=== PATIENT | male | born 1970 | race Caucasian/White ===

== ENCOUNTER 2017-10-25 01:24 | Emergency (ER) | payer OTHER ==
[~2017-10-25] VITALS: Ht 185.4 cm; Wt 81.2 kg
--- NOTE | ~2017-10-25 | EKG ---
[place] [address] [employer] [facility] [place] [address] ELECTROCARDIOGRAM REPORT Name: MARIA ESTHER LARKIN 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 : 1970 Requested By: Roxie Early Order Number: [id number] MD: Christiano Stone Measurements Intervals [place] Rate: 71 P: 60 [place]: 155 QRS: 52 QRSD: 106 T: -35 QT: 388 QTc: 422 Interpretive Statements Sinus rhythm Inferior infarct, age indeterminate Compared to ECG 01/12/2015 09:06:12 No significant change was found Electronically Signed On 10-25-2017 8:51:37 CDT by Christiano Stone [email or web address] <ELECTRONICALLY SIGNED> By: Christiano Stone MD, [facility] 10/25/17 0851 0128 7 Christiano Stone MD, FACC /EPI
[~2017-10-25 01:24] MED LIST: ASPIRIN325 PO; CARVEDILOL12.5 MG PO; LISINOPRIL20 MG PO; NITROGLYCERIN0.4 MG SUBLING; PERCOCET 5-3251 EACH PO; PLAVIX 75 MG TA75 M1 PO; SIMVASTATIN40 MG PO
[2017-10-25 02:01] VITALS: BP 132/88
[2017-10-25 02:10] LABS: ABSOLUTE NEUTROPHILS 1.9 thou/uL (1.4-8.2); BASOPHILS 0.6 % (0.0-2.0); EOSINOPHILS 3.1 % (0.0-3.0); HEMATOCRIT 42.2 % (42.0-52.0); HEMOGLOBIN 14.1 gm/dL (14.0-18.0); LYMPHOCYTES 38.5 % (24.0-44.0); MCH 27.8 pg (26.0-34.0); MCHC 33.4 g/dL (28.0-37.0); MCV 83.2 fL (80.0-100.0); MONOCYTES 11.4 % (1.0-8.0); PLATELET COUNT 162 thou/uL (150-400); POLYS 46.4 % (36.0-66.0); RBC 5.07 mil/uL (4.50-6.00); RDW 12.4 % (10.5-14.5); WBC 4.1 thou/uL (4.0-11.0)
[2017-10-25 02:12] LABS: ANION GAP 8 mmol/L (7-16); BUN 15 mg/dL (7-18); CALCIUM 9.2 mg/dL (8.5-10.1); CHLORIDE 104 mmol/L (98-107); CO2 27 mmol/L (21-32); CREATININE 1.4 mg/dL (0.7-1.3); GLUCOSE 98 mg/dL (74-106); POTASSIUM 3.7 mmol/L (3.5-5.1); SODIUM 139 mmol/L (136-145)
[2017-10-25 02:14] LABS: PROTIME 10.6 Seconds (9.3-11.4)
[2017-10-25 02:21] LABS: TROPONIN-I < 0.04 ng/mL (<0.06)
[2017-10-25] MEDS ORDERED: ATORVASTATIN CA40 MG PO ×2 (02:51)
[2017-10-25] MEDS ORDERED: EFFIENT10 MG PO (02:51)
[2017-10-25] MEDS ORDERED: IMDUR 30 MG TAB30 M1 PO (02:52)
[2017-10-25 03:53] VITALS: BP 139/92
[2017-10-27 05:10] LABS: GLYCOHEMOGLOBIN (HGB A1C) 5.3 % (4.8-5.6)
== END 2017-10-25 03:55 | disposition left against medical advice (07) ==
LOC: ER 01:24 → EROBS 02:50 → ER 03:55
PROVIDERS: Emergency Medicine; Nurse Practitioner Acute Care
DX: I24.9 Acute ischemic heart disease, unspecified (principal); Z53.21 Procedure and treatment not carried out due to patient leaving prior to being seen by health care provider; I25.10 Atherosclerotic heart disease of native coronary artery without angina pectoris; E78.00 Pure hypercholesterolemia, unspecified; I10 Essential (primary) hypertension; F17.210 Nicotine dependence, cigarettes, uncomplicated

== ENCOUNTER 2018-03-22 21:23 | Inpatient (IN) | payer OTHER ==
[~2018-03-22] VITALS: Ht 185.4 cm; Wt 73.9 kg
--- NOTE | ~2018-03-22 | EKG ---
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
--- NOTE | ~2018-03-22 | EKG ---
[address] [address] ELECTROCARDIOGRAM REPORT Name: MARIA ESTHER LARKIN Room #: 206-P [facility] IN M.R.#: [id number] Admission: 03/22/18 Attend Phys: Kip Fleming MD Discharge: 03/24/18 Date of : 66 Report #: [id number] THIS REPORT FOR: //name// [facility] ED Test Date: 2018-03-22 Test Time: 21:24:26 Pat Name: MARIA ESTHER LARKIN Department: Room: 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 : 1970 Requested By: Carlos Eduardo Clark Order Number: [id number] MD: Van Bunch Measurements Intervals [place] Rate: 90 P: 80 [place]: 142 QRS: 59 QRSD: 104 T: -10 QT: 342 QTc: 419 Interpretive Statements Sinus rhythm Probable left atrial enlargement Left ventricular hypertrophy Inferior infarct, age indeterminate Compared to ECG 10/25/2017 01:28:07 Left ventricular hypertrophy now present Myocardial infarct finding still present Electronically Signed On 03-25-2018 14:59:40 CDT by Van Bunch [email or web address] <ELECTRONICALLY SIGNED> By: Van Bunch MD 03/25/18 1459 23 23 Van Bunch MD /EPI
--- NOTE | ~2018-03-22 | CATHLAB ---
[facility] [place] [address] INVASIVE PROCEDURE REPORT Name: MARIA ESTHER LARKIN Room #: 206-P DIS IN [facility].#: [id number] Admission: 03/22/18 Attend Phys: Kip Fleming MD Discharge: 03/24/18 Date of : 66 Date of Service: 03/24/18 1703 Report #: [id number] THIS REPORT FOR: //name// APPROVED REPORT Study performed: 03/23/2018 12:07:15 Patient Details Patient Status: In-Patient Room #: The patient is a 47 year-old male Event Personnel Truman Bishop Yard Demurrage Clerk, Jeanine Glez RN RN, Kyung Salas RTR, Rubin Juarez David Monitor Procedures Performed Left Heart Cath w/or w/o Coronaries [id number] [facility] Aortogram Abdominal Peripheral Angio [address] w/wo Plasty Single RCA 894265 Indication Chest pain Procedure Narrative The Right Groin^ was infiltrated with 1% Lidocaine subcutaneous anesthesia. A PINNACLE 6FR Sheath #[id number] sheath was inserted into the RFA^. Coronary angiography was performed using coronary diagnostic catheters. The right coronary system was accessed and visualized with a JR4 catheter. The left coronary system was accessed and visualized with a JL4 catheter. The left ventricle was accessed and visualized with a PIGTAIL catheter. Left ventriculogram was performed in 30 degree projection. An aortogram of the abdominal aorta was performed. Closure device was deployed with a 6 Fr MYNXGRIP 6/7F #[id number]. There was no hematoma. Intraoperative Conscious Sedation Sedation start time: 12.55 Case end Time: 14.20 Fentanyl 100 mcg Versed 2 mg Fluoro Time: 23.49 minutes Dose: DAP 09430 cGycm2 2223 mGy Contrast Type and Amount: Omnipaque 285 ml Hemodynamics [facility] [place] [address] INVASIVE PROCEDURE REPORT Name: TRAEMARIA ESTHER L Room #: 206-P [facility].#: [id number] Admission: 03/22/18 Attend Phys: Kip Fleming MD Discharge: 03/24/18 Date of : 66 Date of Service: 03/24/18 1703 Report #: [id number] The aortic pressure is 131/88 mmHg with a mean of 105 mmHg. The left ventricular pressure is 145/17 mmHg with a mean of mmHg. The left ventricular end diastolic pressure is 24 mmHg. PCI Technique Lesion Percutaneous coronary intervention was performed on the right posterior descending artery. A LAUNCHER 6FR JR 4 #[id number] Guide Catheter was used to engage the ostium. A Luge Wire .014 x 182CM #[id number] Interventional Guidewire was used to cross the lesion. BALLOON DILATION A Balloon catheter Sprinter OTW 2.25 x 12 #[id number] was inserted and inflated up to 10.00atm for 20seconds. Additional Inflation: 14.00atm for 28seconds. Additional Inflation: 12.00atm for 34seconds. STENT DEPLOYMENT A drug-eluting stent RESOLUTE LYNETTE OTW 2.5 X 12 #[id number] was inserted and inflated up to 16.00atm for 19seconds. Additional Inflation: 18.00atm for 21seconds. Additional Inflation: 18.00atm for 28seconds. PCI Technique Lesion 2 Percutaneous Coronary Intervention was performed on the mistal right coronary artery. A LAUNCHER 6FR JR 4 #[id number] Guide Catheter was used to engage the ostium. A Luge Wire .014 x 182CM #[id number] Interventional Guidewire was used to cross the lesion. Balloon Dilation A Balloon catheter Sprinter OTW 2.5 x 15 #[id number] was inserted and inflated up to 8.00atm for 15seconds. Additional Inflation: 12.00atm for 23seconds. Additional Inflation: 18.00atm for 19seconds. Stent Deployment A drug-eluting stent RESOLUTE LYNETTE OTW 2.75 X 15 #[id number] was inserted and inflated up to 16.00atm for 31seconds. Additional Inflation: 16.00atm for 10seconds. Additional Inflation: 20.00atm for 20seconds. Conclusion #1 successful PTCA stent of a distal right coronary artery subacute infarct vessel 100% occluded with thrombus to 0% with placement of a 2.75 Lynette stent to 3.0 mm in size postdilated #2 successful PTCA stent of a subtotal ostial PDA placement of a 2.5 x 12 Lynette medicated stent to 2.7 mm. This is at a trifurcation lesion. The posterior lateral branch is still briskly and [facility] [address] [place] [address] INVASIVE PROCEDURE REPORT Name: MARIA ESTHER LARKIN Room #: 206-P [facility] IN M.R.#: [id number] Admission: 03/22/18 Attend Phys: Kip Fleming MD Discharge: 03/24/18 Date of : 66 Date of Service: 03/24/18 1703 Report #: [id number] competitively via the left system. #3 the proximal portion of this right coronary has full metal jacket from previous stent segment of the distal third is a 50% in-stent and that is proximal to the prior occluded segment. #4 left main with mild disease giving rise to LAD and circumflex #5 the LAD has extensive proximal prior stent placement with mild in-stent restenosis a mid vessel lesion of 50% distal to the stents and mild disease distally high-grade disease at the bifurcation at the apex of this LAD would treat this medically #6 a ramus intermedius branch has an ostial lesion of 40-50% otherwise well-preserved #7 nondominant circumflex has an eccentric lesion of 8090% tandem in the mid vessel. This will be a segment for intervention at a later date. This vessel has not previously been stented. #8 normal left ventricular size with at least mild global hypokinesis with severe hypokinesis in the inferior wall suspect this may be stunned from the recent RCA occlusion. EF 40% range #9 abdominal aorta is intact without evidence of aneurysm. Bilateral renals and iliac system widely patent Recommendations and plan: Continue aggressive risk factor modification. To the CCU in stable but guarded condition. Dual antiplatelet therapy will continue indefinitely. 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 Will need intervention to circumflex at later date. <ELECTRONICALLY SIGNED> By: Truman Bishop MD, [facility] 03/24/18 1703 02 02 Truman Bishop MD, [facility] /INF
--- NOTE | ~2018-03-22 | 2DMMODE ---
[facility] [place] [address] 2 D/M-MODE ECHOCARDIOGRAM Name: MARIA ESTHER LARKIN Dany Room #: 206-P [facility] IN ..#: [id number] Admission: 03/22/18 Attend Phys: Kip Fleming MD Discharge: Date of : 66 Date of Service: 03/24/18 0958 Report #: [id number] THIS REPORT FOR: //name// APPROVED REPORT Study performed: 03/23/2018 09:21:26 EXAM: Comprehensive 2D, Doppler, and color-flow Echocardiogram Patient Location: Bedside Room #: 349 Status: routine BSA: 2.00 HR: 73 bpm BP: 125/78 mmHg Rhythm: NSR Other Information Study Quality: Good Indications CAD Chest Pain Hypertension/HDD 2D Dimensions RVDd: 38.52 mm IVSd: 13.28 (7-11mm) LVOT Diam: 20.82 (18-24mm) LVDd: 48.24 mm PWd: 13.15 (7-11mm) Ascending Ao: 30.35 (22-36mm) LVDs: 38.87 (25-40mm) Aortic Root: 29.88 mm IVC: 15.00 mm Volumes Left Atrial Volume (Systole) Single Plane 4CH: 43.56 mL Single Plane 2CH: 48.11 mL LA ESV Index: 26.00 mL/m2 Aortic Valve AoV Peak Lamberto.: 1.15 m/s AO Peak Gr.: 5.32 mmHg LVOT Max P.18 mmHg LVOT Max V: 1.02 m/s JAIME Vmax: 3.02 cm2 Mitral Valve E/A Ratio: 1.3 [facility] [address] [place] [address] 2 D/M-MODE ECHOCARDIOGRAM Name: MARIA ESTHER LARKIN Room #: [facility]#: [id number] Admission: 03/22/18 Attend Phys: Kip Fleming MD Discharge: Date of : 66 Date of Service: 03/24/18 0958 Report #: [id number] MV Decel. Time: 200.03 ms MV E Max Lamberto.: 0.78 m/s MV A Lamberto.: 0.58 m/s MV PHT: 58.01 ms IVRT: 101.50 ms Pulmonary Valve PV Peak Lamberto.: 0.86 m/s PV Peak Gr.: 2.99 mmHg Pulmonary Vein P Vein S: 0.59 m/s P Vein A: 0.23 m/s P Vein D: 0.40 m/s P Vein A Dur.: 110.7 msec P Vein S/D Ratio: 1.48 Tricuspid Valve TR Peak Lamberto.: 2.03 m/s TR Peak Gr.: 16.50 mmHg PA Pressure: 22.00 mmHg Left Ventricle The left ventricle is normal size. There is hypokinesis in the inferior wall. There is hypokinesis in the septal wall. There is hypokinesis in the posterior wall. Mild concentric left ventricular hypertrophy. Left ventricular systolic function is mildly decreased. LVEF is 40%. The left ventricular diastolic function is normal. Right Ventricle The right ventricle is normal size. The right ventricular systolic function is normal. Atria The left atrium size is normal. The right atrium size is normal. Aortic Valve The aortic valve is normal in structure. No aortic regurgitation is present. There is no aortic valvular stenosis. Mitral Valve The mitral valve is normal in structure. Trace mitral regurgitation. No evidence of mitral valve stenosis. Tricuspid Valve The tricuspid valve is normal in structure. There is trace tricuspid regurgitation. Estimated PAP 22 mmHg. There is no pulmonary [place] [id number] 2 D/M-MODE ECHOCARDIOGRAM Name: MARIA ESTHER LARKIN Room #: 206-P [facility] IN [facility]#: [id number] Admission: 03/22/18 Attend Phys: Kip Fleming MD Discharge: Date of : 66 Date of Service: 03/24/18 0958 Report #: [id number] hypertension. Pulmonic Valve The pulmonary valve is normal in structure. Trace pulmonic regurgitation. Great Vessels The aortic root is normal in size. IVC is normal in size and collapses >50% with inspiration. Pericardium There is no pericardial effusion. <Conclusion> The left ventricle is normal size. LVEF is 40%. There is hypokinesis in the inferior wall. There is hypokinesis in the septal wall. There is hypokinesis in the posterior wall. The aortic valve is normal in structure. The mitral valve is normal in structure. Trace mitral regurgitation. The tricuspid valve is normal in structure. There is trace tricuspid regurgitation. Estimated PAP 22 mmHg. There is no pulmonary hypertension. The pulmonary valve is normal in structure. Trace pulmonic regurgitation. There is no pericardial effusion. <ELECTRONICALLY SIGNED> By: Anatoyl Jovel MD 03/24/1858 7 7 Anatoly Jovel MD /INF
[~2018-03-22 21:23] MED LIST changes: +ATORVASTATIN CA40 MG PO; +EFFIENT10 MG PO; +IMDUR 30 MG TAB30 M1 PO
[2018-03-22 21:26] VITALS: BP 121/81
[2018-03-22 21:59] LABS: ABSOLUTE NEUTROPHILS 1.6 thou/uL (1.4-8.2); BASOPHILS 0.6 % (0.0-2.0); EOSINOPHILS 4.5 % (0.0-3.0); HEMATOCRIT 38.7 % (42.0-52.0); HEMOGLOBIN 13.3 gm/dL (14.0-18.0); LYMPHOCYTES 43.5 % (24.0-44.0); MCH 28.9 pg (26.0-34.0); MCHC 34.3 g/dL (28.0-37.0); MONOCYTES 10.7 % (1.0-8.0); PLATELET COUNT 145 thou/uL (150-400); POLYS 40.7 % (36.0-66.0); RDW 12.6 % (10.5-14.5); WBC 3.9 thou/uL (4.0-11.0)
[2018-03-22 22:06] LABS: ANION GAP 10 mmol/L (7-16); BUN 16 mg/dL (7-18); CHLORIDE 105 mmol/L (98-107); CO2 25 mmol/L (21-32); CREATININE 1.3 mg/dL (0.7-1.3); GLUCOSE 96 mg/dL (74-106); POTASSIUM 3.8 mmol/L (3.5-5.1); SODIUM 140 mmol/L (136-145)
[2018-03-22 22:16] LABS: TROPONIN-I <0.06 ng/mL (<0.06)
[2018-03-22 23:20] VITALS: BP 127/76
[2018-03-22 23:35] VITALS: BP 124/78
[2018-03-23 03:30] VITALS: BP 134/80
[2018-03-23 04:22] LABS: CHOLESTEROL 202 mg/dL (<200); HDL CHOLESTEROL 40 mg/dL (>40); LDL CHOLESTEROL 146 mg/dL (<100); TC:HDL 5.1 Ratio (Not establshd); TRIGLYCERIDE 82 mg/dL (<150); VLDL 16 mg/dL (<40)
[2018-03-23 04:23] LABS: SERUM ASSESSMENT Clear
[2018-03-23 08:15] VITALS: BP 125/78
[2018-03-23 11:46] VITALS: BP 117/75
[2018-03-23 15:30] VITALS: BP 123/86
[2018-03-23 20:00] VITALS: BP 121/69
[2018-03-24 03:32] LABS: CALCIUM 8.5 mg/dL (8.5-10.1); CREATININE 1.2 mg/dL (0.7-1.3)
[2018-03-24 03:35] LABS: TROPONIN-I 17.08 ng/mL (<0.06)
[2018-03-24 05:15] VITALS: BP 133/81
[2018-03-24 08:09] VITALS: BP 130/88
[2018-03-24] MEDS ORDERED: ZETIA10 MG PO (08:25)
[2018-03-24] MEDS ORDERED: ATORVASTATIN CA40 MG PO (08:25)
[2018-03-24] MEDS ORDERED: ASPIRIN325 PO (08:25)
[2018-03-24] MEDS ORDERED: EFFIENT10 MG PO (08:25)
[2018-03-24 11:51] VITALS: BP 109/63
[2018-03-24 11:58] VITALS: BP 109/63
== END 2018-03-24 14:16 | disposition home or self-care (01) | DRG 246 ==
LOC: ER 21:23 → 3W 22:40 → EROBS 22:40 → 3W 23:28 → 2N 03-23 15:04
PROVIDERS: Internal Medicine Cardiovascular Disease; Nurse Practitioner Acute Care; Physician Assistant
PROC: B2111ZZ Fluoroscopy of Multiple Coronary Arteries using Low Osmolar Contrast (ICD-10-PCS; principal; 2018-03-23)
PROC: 4A023N7 Measurement of Cardiac Sampling and Pressure, Left Heart, Percutaneous Approach (ICD-10-PCS; principal; 2018-03-23)
PROC: B2151ZZ Fluoroscopy of Left Heart using Low Osmolar Contrast (ICD-10-PCS; principal; 2018-03-23)
PROC: 027135Z Dilation of Coronary Artery, Two Arteries with Two Drug-eluting Intraluminal Devices, Percutaneous Approach (ICD-10-PCS; principal; 2018-03-23)
PROC: B4101ZZ Fluoroscopy of Abdominal Aorta using Low Osmolar Contrast (ICD-10-PCS; principal; 2018-03-23)
DX: I21.4 Non-ST elevation (NSTEMI) myocardial infarction (principal); I50.33 Acute on chronic diastolic (congestive) heart failure; I13.0 Hypertensive heart and chronic kidney disease with heart failure and stage 1 through stage 4 chronic kidney disease, or unspecified chronic kidney disease; E78.00 Pure hypercholesterolemia, unspecified; I25.10 Atherosclerotic heart disease of native coronary artery without angina pectoris; F17.290 Nicotine dependence, other tobacco product, uncomplicated; E78.5 Hyperlipidemia, unspecified; Z79.82 Long term (current) use of aspirin; I25.2 Old myocardial infarction; Z95.5 Presence of coronary angioplasty implant and graft; Z88.6 Allergy status to analgesic agent; Z82.49 Family history of ischemic heart disease and other diseases of the circulatory system; Z82.3 Family history of stroke; Z79.899 Other long term (current) drug therapy
CPT/HCPCS: 10081; 10879

== ENCOUNTER 2018-07-20 07:05 | Observation (INO) | payer OTHER ==
[~2018-07-20] VITALS: Ht 185.4 cm; Wt 82.3 kg
[2018-07-20 07:02] VITALS: BP 125/59
[~2018-07-20 07:05] MED LIST changes: +ZETIA10 MG PO
[2018-07-20] MEDS ORDERED: ASPIR 8181 MG PO (07:22)
[2018-07-20] MEDS ORDERED: NITROGLYCERIN0.4 MG SUBLING (07:25)
[2018-07-20 07:37] LABS: HEMATOCRIT 40.9 % (42.0-52.0); HEMOGLOBIN 13.7 gm/dL (14.0-18.0); MCH 28.1 pg (26.0-34.0); MCHC 33.4 g/dL (28.0-37.0); MCV 84.1 fL (80.0-100.0); RBC 4.86 mil/uL (4.50-6.00); RDW 12.6 % (10.5-14.5); WBC 5.2 thou/uL (4.0-11.0)
[2018-07-20 07:43] LABS: CALCIUM 9.1 mg/dL (8.5-10.1); CREATININE 1.4 mg/dL (0.7-1.3); POTASSIUM 4.5 mmol/L (3.5-5.1)
--- NOTE | 2018-07-20 08:31 | EKG ---
[place] [address] 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
[2018-07-20 13:11] VITALS: BP 132/89
--- NOTE | 2018-07-20 15:51 | NUR ---
PT TO THE UNIT POST CATH THIS AM. GROINS SITE AND VSS. MEDS PER SEP - NO CO'S OF NAUSEA NICOLE DIET AND FLUIDS. PT WITH CO'S OF BACK PAIN - GIVEN TYLENOL WITH RELIEF. IV FLUIDS INFUSED. NO CO'S AT THE PRESENTIME - SEEN BY CARDIAC REHAB THIS AFTERNOON. FAMILY AT THE BEDSIDE.
[2018-07-20 21:57] VITALS: BP 145/80
[2018-07-21 00:38] VITALS: BP 140/90
[2018-07-21 03:43] VITALS: BP 138/82
--- NOTE | 2018-07-21 03:46 | NUR ---
ASSUMED PT CARE AT 1900. VSS. PT A&0X4. PT IS POST HEART CATH. R GROIN SITE IS CDI. PT IS STABLE. HE COMPLAINED OF SOME TENDERNESS AT THE SITE WHICH WAS RESOLVED WITH TYLENOL. PT IS UP ADLIB AND STEADY ON HIS FEET. NO COMPLAINTS OR DISTRESS OVERNIGHT, WILL CONTINUE TO MONITOR PER POC.
[2018-07-21 07:00] VITALS: BP 145/77
[2018-07-21] MEDS ORDERED: ASPIRIN325 PO (07:24)
--- NOTE | 2018-07-21 08:18 | EKG ---
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: RAISSA : 1970 Requested By: Radha Smith Order Number: [id number] MD: Christiano Stone Measurements Intervals [place] Rate: 60 P: 54 MI: 155 QRS: 30 QRSD: 109 T: -23 QT: 405 QTc: 405 Interpretive Statements Sinus rhythm Inferior infarct, age indeterminate Baseline wander in lead(s) V2 Compared to ECG 07/20/2018 07:36:37 No significant changes Electronically Signed On 07-21-2018 8:18:39 ZOOKEEPER by Christiano Stone [email or web address] <ELECTRONICALLY SIGNED> By: Christiano Stone MD, [facility] 07/21/1818 0648 0648 Christiano Stone MD, [facility] /EPI
[2018-07-21 08:57] VITALS: BP 138/82
--- NOTE | 2018-07-21 09:40 | NUR ---
RD consult received. S/P angioplasty. Has received education binder and stated he had no questions regarding diet and that he has already started making changes.
[2018-07-21 11:05] VITALS: BP 134/79
--- NOTE | 2018-07-21 13:14 | NUR ---
ASSESSMENT CHARTED - MEDS PER SEP - NO CO'S OF NAUSEA - CO'S OF PAIN IN GROIN SITE GIVEN TYLENOL WITH RELIEF - UP AD GAYLE IN ROOM - NICOLE DIEET AND FLUIDS. PT HOME THIS AFTERNOON. - INSTRUCTION RE HOME MEDS/ CARE AND FOLLOW UP GIVEN TO PATIENT STATED UNDERSTANDING OF INSTRUCTION GIVEN - MONITOR REMOVED AND IV OUT PRIOR TO D/C. NO CO'S AT TIME OF D/C.
--- NOTE | 2018-07-21 13:47 | CATHLAB ---
[facility] [address] INVASIVE PROCEDURE REPORT Name: MARIA ESTHER LARKIN Room #: 200-I DIS IN ..#: [id number] Admission: 07/20/18 Attend Phys: Truman Bishop, Discharge: 07/21/18 Date of : 66 Date of Service: 07/21/18 1346 Report #: [id number] THIS REPORT FOR: //name// APPROVED REPORT Study performed: 07/20/2018 07:17:31 Patient Details Patient Status: Out-Patient Room #: The patient is a 48 year-old male Event Personnel Truman Bishop Scrap Drop Crane Operator, Jeanine Glez RN RN, Kyung Salas RTR, Rubin Juarez David Monitor Procedures Performed Left Heart Cath w/or w/o Coronaries [id number] [facility] Place w/wo Plasty Single CIRC 381178 Indication Chest pain Procedure Narrative The Right Groin^ was infiltrated with 1% Lidocaine subcutaneous anesthesia. A PINNACLE 6FR Sheath #521315 sheath was inserted into the RFA^. Coronary angiography was performed using coronary diagnostic catheters. The right coronary system was accessed and visualized with a JR4 catheter. The left coronary system was accessed and visualized with a JL4 catheter. The left ventricle was accessed and visualized with a PIGTAIL catheter. Closure device was deployed with a 6 Fr MYNXGRIP 6/7F #[id number]. There was no hematoma. Intraoperative Conscious Sedation Sedation start time: 8.55 Case end Time: 9.44 Fentanyl 25 mcg Versed 1.5 mg Fluoro Time: 5.25 minutes Dose: DAP 5378 cGycm2 681 mGy Contrast Type and Amount: Omnipaque 180 ml Hemodynamics The aortic pressure is 129/79 mmHg with a mean of 95 mmHg. The left ventricular pressure is 129/8 mmHg with a mean of mmHg. The left [facility] [address] [place] [address] INVASIVE PROCEDURE REPORT Name: TRAEMARIA ESTHERALBINO WOLF Room #: 200-I [facility] IN .R.#: [id number] Admission: 07/20/18 Attend Phys: Truman Bishop, Discharge: 07/21/18 Date of : 66 Date of Service: 07/21/18 1346 Report #: [id number] ventricular end diastolic pressure is 24 mmHg. PCI Technique Lesion Percutaneous coronary intervention was performed on the mid circumflex artery segment. A LAUNCHER 6FR EBU 3.5 #[id number] Guide Catheter was used to engage the ostium. A Luge Wire .014 x 182CM #[id number] Interventional Guidewire was used to cross the lesion. BALLOON DILATION A Balloon catheter Sprinter OTW 2.5 x 20 #[id number] was inserted and inflated up to 10.00atm for 27seconds. Additional Inflation: 8.00atm for 26seconds. STENT DEPLOYMENT A drug-eluting stent XIENCE KEVIN RX 2.5 X 18 #[id number] was inserted and inflated up to 12.00atm for 30seconds. Additional Inflation: 16.00atm for 23seconds. Conclusion #1 successful PTCA stent of a mid circumflex lesion tandem 90% to 0% with placement of a 2.5 x 18 Kevin drug-eluting stent healing 0% residual and SOCORRO grade 3 flow #2 left main is mildly disease distally of 30% giving rise to LAD and ramus and circumflex #3 LAD with proximal stents is mild in-stent restenosis mid vessel lesion of 50% and then high-grade at the apex will not intervene at the apical segment. #4 ramus intermedius branch is mild to moderately disease 40 and 50% proximal lesions moderate distribution #5 dominant right coronary artery which has extensive full metal jacket now was recently intervened on for an acute inferior all remained patent with only moderate restenosis in the distal third segment the PDA TERESO which were intervened on appear to be widely patent. SOCORRO grade 3 flow #6 normal left ventricular size there is a moderate area of severe hypokinesis of the distal inferior wall ejection fraction in the 45% range. [place] is mildly hypokinetic Recommendations and plan: Continue aggressive risk for factor modification dual antiplatelet therapy. To the CCU to follow post stent protocol <ELECTRONICALLY SIGNED> By: Truman Bishop MD, [facility] 07/21/18 1346 45 Truman Bishop MD, FACC /INF
== END 2018-07-21 13:13 | disposition home or self-care (01) ==
LOC: CATH 07:05 → 2N 10:17 → CATH 13:12 → ENTRNSPT 07-21 13:00 → EDTRNSPTSTS 07-21 13:05 → 2N 07-21 13:13
PROVIDERS: ADMIT Internal Medicine Cardiovascular Disease
DX: I25.10 Atherosclerotic heart disease of native coronary artery without angina pectoris (principal); I10 Essential (primary) hypertension; I21.4 Non-ST elevation (NSTEMI) myocardial infarction; E78.5 Hyperlipidemia, unspecified; I24.9 Acute ischemic heart disease, unspecified; Z72.0 Tobacco use; Z79.82 Long term (current) use of aspirin; Z79.899 Other long term (current) drug therapy

== ENCOUNTER → 2019-11-21 | Outpatient (CLI) | payer OTHER ==
[~2019-11-21] MED LIST changes: +ASPIR 8181 MG PO
== END ==
LOC: SJCVC 15:17
PROVIDERS: ATTEND Internal Medicine Cardiovascular Disease
DX: R94.31 Abnormal electrocardiogram [ECG] [EKG] (principal); I25.10 Atherosclerotic heart disease of native coronary artery without angina pectoris; E78.2 Mixed hyperlipidemia; I10 Essential (primary) hypertension; I25.5 Ischemic cardiomyopathy; F17.210 Nicotine dependence, cigarettes, uncomplicated; Z95.5 Presence of coronary angioplasty implant and graft; Z79.899 Other long term (current) drug therapy

== ENCOUNTER → 2020-09-03 | Outpatient (CLI) | payer OTHER | LOC: SJCVCIMAG 09:07 | PROVIDERS: ATTEND Internal Medicine Cardiovascular Disease | DX: I08.8 Other rheumatic multiple valve diseases (principal); R00.0 Tachycardia, unspecified; I49.3 Ventricular premature depolarization; I11.9 Hypertensive heart disease without heart failure; I25.10 Atherosclerotic heart disease of native coronary artery without angina pectoris; I25.5 Ischemic cardiomyopathy; I25.2 Old myocardial infarction; Z88.8 Allergy status to other drugs, medicaments and biological substances; Z79.899 Other long term (current) drug therapy ==

== ENCOUNTER 2020-12-09 04:21 | Inpatient (IN) | payer OTHER ==
[~2020-12-09] VITALS: Ht 185.4 cm; Wt 85.7 kg
[2020-12-09] VITALS (17 sets, daily range): BP systolic 130–177; BP diastolic 65–103
[2020-12-09 04:50] LABS: ABSOLUTE NEUTROPHILS 5.1 thou/uL (1.4-8.2); BASOPHILS 0.6 % (0.0-2.0); EOSINOPHILS 2.4 % (0.0-3.0); HEMATOCRIT 40.7 % (42.0-52.0); HEMOGLOBIN 13.7 gm/dL (14.0-18.0); LYMPHOCYTES 24.6 % (24.0-44.0); MCHC 33.6 g/dL (28.0-37.0); MCV 83.2 fL (80.0-100.0); MONOCYTES 7.1 % (1.0-8.0); PLATELET COUNT 187 thou/uL (150-400); POLYS 65.3 % (36.0-66.0); RDW 12.5 % (10.5-14.5); WBC 7.8 thou/uL (4.0-11.0)
[2020-12-09 06:04] LABS: ANION GAP 12 mmol/L (7-16); BUN 8 mg/dL (7-18); CALCIUM 8.8 mg/dL (8.5-10.1); CHLORIDE 102 mmol/L (98-107); CO2 25 mmol/L (21-32); CREATININE 1.4 mg/dL (0.7-1.3); GLUCOSE 130 mg/dL (74-106); POTASSIUM 3.8 mmol/L (3.5-5.1); SODIUM 139 mmol/L (136-145)
[2020-12-09 06:09] LABS: ALBUMIN 3.7 g/dL (3.4-5.0); LIPASE 110 U/L (73-393); SGOT 19 U/L (15-37); SGPT 30 U/L (16-63); TOTAL BILIRUBIN 0.2 mg/dL (0.2-1.0); TOTAL PROTEIN 7.9 g/dL (6.4-8.2); TROPONIN-I <0.06 ng/mL (<0.06)
--- NOTE | 2020-12-09 07:18 | EKG ---
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 Admin: : 1970 Requested By: Titus Andres Order Number: [id number] MD: Gigi Alejandra Measurements Intervals [place] Rate: 85 P: 73 WI: 156 QRS: 59 QRSD: 117 T: -15 QT: 374 QTc: 445 Interpretive Statements Sinus rhythm Probable left ventricular hypertrophy Inferior infarct, old J Point elevation, probably due to LVH Compared to ECG 07/21/2018 06:48:44 Left ventricular hypertrophy now present ST (T wave) deviation now present Myocardial infarct finding still present Electronically Signed On 12-09-2020 7:18:10 CDT by iGgi Alejandra [email or web address] <ELECTRONICALLY SIGNED> By: Gigi Alejandra MD, [facility] 12/09/20 0718 043 0431 Gigi Alejandra MD, [facility] /EPI
--- NOTE | 2020-12-09 09:19 | NUR ---
PT ORIENTED TO ROOM AND UNIT, BED LOW AND LOCKED, SIDE RAILS UPX3, CALL LIGHT IN REACH, TELE APPLIED. CRITICAL TROPONIN RESULTS CALLED TO CARDIOLOGY DIE GRINDER. WILL CONTINUE TO ASSESS.
--- NOTE | 2020-12-09 11:20 | NUR ---
PT OFF UNIT TO OPERATIONS SPECIALISTS.
[2020-12-09 13:40] LABS: CHOLESTEROL 227 mg/dL (<200); HDL CHOLESTEROL 34 mg/dL (>40); LDL CHOLESTEROL 154 mg/dL (<100); TC:HDL 6.7 Ratio (Not establshd); TRIGLYCERIDE 195 mg/dL (<150); VLDL 39 mg/dL (<40)
--- NOTE | 2020-12-09 13:58 | NUR ---
PT RETURN TO UNIT FROM TECHNICAL SERVICES ASSISTANT. GITH GROIN CDI WITH NO HEMATOMA. TELE REAPPLIED. WILL CONTINUE TO ASSESS.
--- NOTE | 2020-12-09 13:58 | NUR ---
PT ADIMITTED WITH CHEST PX. PT STATED HE HAS 3 STROKES IN THE PAST. PT LIVES WITH AND KIDS. PT INDEPENDENT WITH ADLS. PT IS UNEMPLOYEED. PT DONT USE ANY DMES. PT USES "WHOLE PERSON" FOR IN HOME CARE SERVICES AN AVERAGE OF 6HRS. PT DOES NOT HAVE PCP, CM GAVE RESOURCE LIST. PT SEE DR GUY FROM [facility].
--- NOTE | 2020-12-09 15:36 | 2DMMODE ---
[facility] [place] [address] 2 D/M-MODE ECHOCARDIOGRAM Name: MARIA ESTHER LARKIN Room #: 211-P ADM IN M.R.#: [id number] Admission: 12/09/20 Attend Phys: Mei Witt MD Discharge: Date of : 66 Report #: [id number] THIS REPORT FOR: cc: NO FAMILY PHYSICIAN or PCP NO FAMILY PHYSICIAN or PCP Anatoly Jovel MD ~ APPROVED REPORT Study performed: 12/09/2020 14:19:40 EXAM: Limited 2D, Doppler, and color-flow Echocardiogram Patient Location: Bedside Room #: 211 Status: routine BSA: 2.08 HR: 71 bpm BP: 157/103 mmHg Rhythm: NSR Other Information Study Quality: Excellent Indications Chest pain. S/P PCI. Hx: NSTEMI, multiple stents, HTN, HLP, tob abuse. 2D Dimensions IVSd: 12.00 (7-11mm) LVDd: 54.00 mm PWd: 12.00 (7-11mm) LVDs: 45.20 (25-40mm) Aortic Root: 34.23 mm Aortic Valve LVOT Max P.15 mmHg LVOT Max V: 0.89 m/s Mitral Valve E/A Ratio: 0.7 MV Decel. Time: 199.92 ms MV E Max Lamberto.: 0.70 m/s MV A Lamberto.: 0.95 m/s MV PHT: 57.98 ms Pulmonary Valve [facility] [address] [place] [address] 2 D/M-MODE ECHOCARDIOGRAM Name: MARIA ESTHER LARKIN Room #: 211-P ADM IN M.R.#: [id number] Admission: 12/09/20 Attend Phys: Mei Witt MD Discharge: Date of : 66 Report #: [id number] PV Peak Lamberto.: 0.81 m/s PV Peak Gr.: 2.62 mmHg Tricuspid Valve TR Peak Lamberto.: 2.36 m/s RAP Estimate: 5.00 mmHg TR Peak Gr.: 22.23 mmHg PA Pressure: 27.00 mmHg Left Ventricle The left ventricle is normal size. Regional wall motion abnormalities primarily in the inferior and septal wall are noted. Mild concentric left ventricular hypertrophy. Left ventricular systolic function is moderate to severely decreased. LVEF is 30-35%. Mild diastolic dysfunction is present (impaired relaxation pattern). Right Ventricle The right ventricle is normal size. The right ventricular systolic function is normal. Atria The left atrium size is normal. The right atrium size is normal. Aortic Valve The aortic valve is normal in structure. Trace aortic regurgitation. There is no aortic valvular stenosis. Mitral Valve The mitral valve is normal in structure. Mild mitral regurgitation. Tricuspid Valve The tricuspid valve is normal in structure. Mild tricuspid regurgitation. Estimated PAP is 25-30mmHg. Pulmonic Valve The pulmonary valve is normal in structure. Trace pulmonic regurgitation. Great Vessels The aortic root is normal in size. IVC is normal in size and collapses >50% with inspiration. Pericardium There is no pericardial effusion. <Conclusion> [facility] [address] [place] [address] 2 D/M-MODE ECHOCARDIOGRAM Name: MARIA ESTHER LARKIN Room #: 211-P ADM IN M.R.#: [id number] Admission: 12/09/20 Attend Phys: Mei Witt MD Discharge: Date of : 66 Report #: [id number] The left ventricle is normal size. Mild concentric left ventricular hypertrophy. Regional wall motion abnormalities primarily in the inferior and septal wall are noted. LVEF is 30-35%. Trace aortic regurgitation. The mitral valve is normal in structure. Mild mitral regurgitation. The tricuspid valve is normal in structure. Mild tricuspid regurgitation. Estimated PAP is 25-30mmHg. The pulmonary valve is normal in structure. Trace pulmonic regurgitation. The aortic root is normal in size. There is no pericardial effusion. <ELECTRONICALLY SIGNED> By: Anatoly Jovel MD 12/09/20 1536 1536 1536 Anatoly Jovel MD /INF
--- NOTE | 2020-12-09 17:35 | CATHLAB ---
[facility] [address] [place] [address] INVASIVE PROCEDURE REPORT Name: MARIA ESTHER LARKIN Room #: 211-P ADM IN M.R.#: [id number] Admission: 12/09/20 Attend Phys: Mei Witt MD Discharge: Date of : 66 Report #: [id number] THIS REPORT FOR: cc: NO FAMILY PHYSICIAN or PCP NO FAMILY PHYSICIAN or PCP Truman Bishop MD [facility] ~ APPROVED REPORT Study performed: 12/09/2020 11:30:35 Patient Details Patient Status: In-Patient Room #: 211 The patient is a 50 year-old male Event Personnel Truman Bishop Radiology Tech, Deep Benitez RN RN, Blanca Coto CVT Monitor, RandalElham RTR Scrub Procedures Performed Art Access - R femoral artery* 57973 Initial Mod Sed Same Phys/QHP Gr5y 204301 BEBE Place w/wo Plasty Single RCA 286163 Left Heart Cath w/or w/o Coronaries 8689064 LHC Hemostasis w/ Mynx 38952 Mod Sed Same Phys/QHP Ea 804265 Aortogram Abdominal Peripheral Angio 427496 Indication Chest pain Procedure Narrative The Right Groin^ was infiltrated with 1% Lidocaine subcutaneous anesthesia. A PINNACLE 6FR Sheath #[id number] sheath was inserted into the RFA 6FR^. Coronary angiography was performed using coronary diagnostic catheters. The right coronary system was accessed and visualized with a JR4 catheter. The left coronary system was accessed and visualized with a JL4 catheter. The left ventricle was accessed and visualized with a PIGTAIL catheter. Left ventriculogram was performed in 30 degree projection. An aortogram of the abdominal aorta was performed. Closure device was deployed with a 6 Fr MYNX CONTROL 6F/7F L#[id number]. The patient tolerated the procedure well and there were no complications associated with the procedure. There was no hematoma. Intraoperative Conscious Sedation Sedation start time: 12:19 Case end Time: [facility] [place] [address] INVASIVE PROCEDURE REPORT Name: MARIA ESTHER LARKIN Room #: 211-P [facility] IN .R.#: [id number] Admission: 12/09/20 Attend Phys: Mei Witt MD Discharge: Date of : 66 Report #: [id number] 13:29 Fentanyl 75 mcg Versed 2 mg Fluoro Time: 6.40 minutes Dose: DAP 6141.66 cGycm2 771 mGy Contrast Type and Amount: Omnipaque 195 ml Hemodynamics The aortic pressure is 134/76 mmHg with a mean of 94 mmHg. The left ventricular pressure is 136/8 mmHg with a mean of mmHg. The left ventricular end diastolic pressure is 20 mmHg. PCI Technique Lesion Percutaneous coronary intervention was performed on the mid right coronary artery. A LAUNCHER 6FR JR 4 #[id number] Guide Catheter was used to engage the ostium. A Luge Wire .014 x 182CM #[id number] Interventional Guidewire was used to cross the lesion. BALLOON DILATION A Balloon catheter Sprinter OTW 3.0 x 20 #[id number] was inserted and inflated up to 18.00atm for 38seconds. STENT DEPLOYMENT A drug-eluting stent RESOLUTE LYNETTE OTW 4.0 X 22 #[id number] was inserted and inflated up to 18.00atm for 37seconds. POST STENT DEPLOYMENT BALLOON DILATION A Balloon catheter TREK NC OTW 4.5 X 12 #[id number] was inserted and inflated up to 12.00atm for 23seconds. Additional Inflation: 14.00atm for 23seconds. Additional Inflation: 16.00atm for 25seconds. Conclusion #1. Successful PTCA stent of the distal third eccentric lesion in-stent in a large dominant right coronary previously full metal jacket. Progression placement of a 4 oh by 22 resolute stent postdilated to 4.5 mm with noncompliant balloon SOCORRO grade III flow. #2 left main mildly disease large giving rise to LAD and circumflex. #3 the LAD previously placed stents is mild to moderate in-stent restenosis. The mid vessel after the diagonal takeoff has an eccentric 60 to 70% restenosis and then a mid distal 60% table mountain stenosis with a large wraparound LAD preserved. #4 a ramus intermedius has moderate proximal disease of 50 to 60% 1 moderate size ramus branch. [facility] [address] [place] [address] INVASIVE PROCEDURE REPORT Name: MARIA ESTHER LARKIN Room #: 211-P [facility] IN M.R.#: [id number] Admission: 12/09/20 Attend Phys: Mei Witt MD Discharge: Date of : 66 Report #: [id number] #4 circumflex OM with mild disease nondominant. #5 normal left jugular size with mild global hypokinesis worse inferiorly EF 40 to 45% #6 abdominal aortogram is intact without evidence of aneurysm widely patent renal arteries also noted. Recommendations and plan: Continue aggressive risk factor modification dual antiplatelet therapy initiated. Patient stable upon transfer to the CCU to follow post coronary stent protocol. Will evaluate the moderate LAD lesions with noninvasive testing. <ELECTRONICALLY SIGNED> By: Truman Bishop MD, [facility] 12/09/20 1735 1735 1735 Truman Bishop MD, FACC /INF
--- NOTE | 2020-12-09 18:30 | NUR ---
PT RIGHT GROIN CDI WITH NO HEMATOMA. PT UP TO BATHROOM VOIDING AND TAKING IN GOOD PO. PT REFUSING IV FLUIDS AT THIS TIME SPOUSE IS IN BED WITH HIM. WILL CONTINUE TO ASSESS.
--- NOTE | 2020-12-09 19:08 | NUR ---
RIGHT GROIN ASSESSED WITH NIGHT RN AND CDI WITH NO HEMATOMA.
[2020-12-10 00:45] VITALS: BP 158/107
--- NOTE | 2020-12-10 04:18 | NUR ---
PT POST CATH WITH BEBE TO RCA, RIGHT GROIN WITH MYNX CLOSURE REMAINS CDI, PT UP AD GAYLE, NO C/O PAIN, FAMILY AT BEDSIDE EARLIER IN SHIFT. HOPES TO GO HOME SOON WILL CON'T TO MONITOR PER PPOC, VSS.
[2020-12-10 04:45] VITALS: BP 149/83
[2020-12-10 05:28] LABS: ALBUMIN 3.3 g/dL (3.4-5.0); CALCIUM 8.7 mg/dL (8.5-10.1); CREATININE 1.3 mg/dL (0.7-1.3); POTASSIUM 3.9 mmol/L (3.5-5.1); TOTAL BILIRUBIN 0.5 mg/dL (0.2-1.0); TOTAL PROTEIN 7.2 g/dL (6.4-8.2)
[2020-12-10 05:30] LABS: TROPONIN-I 9.41 ng/mL (<0.06)
[2020-12-10 05:58] LABS: ABSOLUTE NEUTROPHILS 4.4 thou/uL (1.4-8.2); BASOPHILS 0.2 % (0.0-2.0); EOSINOPHILS 1.7 % (0.0-3.0); LYMPHOCYTES 26.9 % (24.0-44.0); MCH 27.8 pg (26.0-34.0); MCHC 33.2 g/dL (28.0-37.0); MCV 83.7 fL (80.0-100.0); MONOCYTES 8.1 % (1.0-8.0); PLATELET COUNT 177 thou/uL (150-400); POLYS 63.1 % (36.0-66.0); RBC 5.02 mil/uL (4.50-6.00); RDW 12.9 % (10.5-14.5); WBC 6.9 thou/uL (4.0-11.0)
[2020-12-10 07:10] VITALS: BP 133/91
[2020-12-10 11:15] VITALS: BP 124/7
[2020-12-10 12:42] VITALS: BP 124/7
--- NOTE | 2020-12-10 14:20 | NUR ---
ON-GOING ASSESSMENT: CM REVIEWED CHART. PT HAS ORDERS TO DISCHARGE HOME. PT REPORTS HAVING A RIDE HOME AND NO NEEDS FROM CM. CASE CLOSED.
== END 2020-12-10 14:48 | disposition home or self-care (01) | DRG 246 ==
LOC: ER 04:21 → EROBS 06:18 → 2N 06:42
PROVIDERS: Emergency Medicine; Nurse Practitioner; Nurse Practitioner Adult Health; ADMIT Internal Medicine; ATTEND Internal Medicine
PROC: 4A023N7 Measurement of Cardiac Sampling and Pressure, Left Heart, Percutaneous Approach (ICD-10-PCS; principal; 2020-12-09)
PROC: B2111ZZ Fluoroscopy of Multiple Coronary Arteries using Low Osmolar Contrast (ICD-10-PCS; principal; 2020-12-09)
PROC: B2151ZZ Fluoroscopy of Left Heart using Low Osmolar Contrast (ICD-10-PCS; principal; 2020-12-09)
PROC: B41D1ZZ Fluoroscopy of Aorta and Bilateral Lower Extremity Arteries using Low Osmolar Contrast (ICD-10-PCS; principal; 2020-12-09)
PROC: 027034Z Dilation of Coronary Artery, One Artery with Drug-eluting Intraluminal Device, Percutaneous Approach (ICD-10-PCS; principal; 2020-12-09)
DX: T82.855A Stenosis of coronary artery stent, initial encounter (principal); I21.4 Non-ST elevation (NSTEMI) myocardial infarction; N17.9 Acute kidney failure, unspecified; I25.10 Atherosclerotic heart disease of native coronary artery without angina pectoris; I25.5 Ischemic cardiomyopathy; I10 Essential (primary) hypertension; E78.00 Pure hypercholesterolemia, unspecified; F17.200 Nicotine dependence, unspecified, uncomplicated; Y83.8 Other surgical procedures as the cause of abnormal reaction of the patient, or of later complication, without mention of misadventure at the time of the procedure; Z95.5 Presence of coronary angioplasty implant and graft; Y92.89 Other specified places as the place of occurrence of the external cause; I25.2 Old myocardial infarction; Z79.82 Long term (current) use of aspirin; Z79.899 Other long term (current) drug therapy; Z88.5 Allergy status to narcotic agent
CPT/HCPCS: 10081

== ENCOUNTER 2021-06-03 23:15 | Inpatient (IN) | payer OTHER ==
[~2021-06-03] VITALS: Ht 182.9 cm; Wt 87.1 kg
[2021-06-03 23:18] VITALS: BP 154/88
[2021-06-04 00:05] LABS: ABSOLUTE NEUTROPHILS 2.8 thou/uL (1.4-8.2); BASOPHILS 0.6 % (0.0-2.0); EOSINOPHILS 3.7 % (0.0-3.0); HEMOGLOBIN 14.4 gm/dL (14.0-18.0); LYMPHOCYTES 30.9 % (24.0-44.0); MCH 27.5 pg (26.0-34.0); MCHC 32.7 g/dL (28.0-37.0); MCV 84.2 fL (80.0-100.0); MONOCYTES 10.3 % (1.0-8.0); PLATELET COUNT 186 thou/uL (150-400); POLYS 54.5 % (36.0-66.0); RBC 5.23 mil/uL (4.50-6.00); RDW 12.8 % (10.5-14.5); WBC 5.2 thou/uL (4.0-11.0)
[2021-06-04 00:07] LABS: CALCIUM 8.8 mg/dL (8.5-10.1); CREATININE 1.5 mg/dL (0.7-1.3)
[2021-06-04 00:19] LABS: ALBUMIN 3.5 g/dL (3.4-5.0); TOTAL BILIRUBIN 0.4 mg/dL (0.2-1.0); TOTAL PROTEIN 7.6 g/dL (6.4-8.2)
[2021-06-04 05:36] VITALS: BP 131/56
[2021-06-04 05:50] VITALS: BP 145/96
--- NOTE | 2021-06-04 07:20 | EKG ---
[address] [place] [address] ELECTROCARDIOGRAM REPORT Name: MARIA ESTHER LARKIN Room #: 200-I ADM IN M.R.#: [id number] Admission: 06/04/21 Attend Phys: Kip Fleming MD Discharge: Date of : 66 Report #: [id number] [facility] ED Test Date: 2021-06-03 Test Time: 23:27:37 Pat Name: MARIA ESTHER LARKIN Department: Room: 200 Gender: M Admitting Clerk: COURTNEY : 1970 Requested By: Marcin Estrada Order Number: [id number] MD: Gigi Alejandra Measurements Intervals [place] Rate: 75 P: 54 OR: 148 QRS: 46 QRSD: 116 T: -35 QT: 382 QTc: 427 Interpretive Statements Sinus rhythm Probable left atrial enlargement Nonspecific intraventricular conduction delay Inferior infarct, age indeterminate Lateral leads are also involved Baseline wander in lead(s) III,aVL Compared to ECG 12/09/2020 04:31:04 Intraventricular conduction delay now present Left ventricular hypertrophy no longer present ST (T wave) deviation no longer present Myocardial infarct finding still present Electronically Signed On 06-04-2021 7:20:10 PLANT CHANGER by Gigi Alejandra [email or web address] <ELECTRONICALLY SIGNED> By: Gigi Alejandra MD, FACC 06/04/21 0720 26 26 Gigi Alejandra MD, FAC /EPI
--- NOTE | 2021-06-04 07:20 | EKG ---
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: mpageetha : 1970 Requested By: Marcin Estrada Order Number: [id number] MD: Gigi Alejandra Measurements Intervals [place] Rate: 72 P: 59 MS: 154 QRS: 40 QRSD: 116 T: -47 QT: 376 QTc: 412 Interpretive Statements Sinus arrhythmia Ventricular premature complex Probable left atrial enlargement Nonspecific intraventricular conduction delay Inferior infarct, age indeterminate Lateral leads are also involved Compared to ECG 06/03/2021 23:27:37 Ventricular premature complex(es) now present Sinus rhythm no longer present Myocardial infarct finding still present Electronically Signed On 06-04-2021 7:20:20 JAVA TECHNICAL MANAGER by Gigi Alejandra [email or web address] <ELECTRONICALLY SIGNED> By: Gigi Alejandra MD, FACC 06/04/21 0720 002 002 Gigi Alejandra MD, [facility] /EPI
[2021-06-04 07:28] LABS: CALCIUM 8.4 mg/dL (8.5-10.1); CREATININE 1.3 mg/dL (0.7-1.3); POTASSIUM 4.2 mmol/L (3.5-5.1)
[2021-06-04 07:56] VITALS: BP 155/98
[2021-06-04 11:42] VITALS: BP 152/96
[2021-06-04] MEDS ORDERED: LIPITOR40 MG PO (14:41)
[2021-06-04] MEDS ORDERED: BENICAR20 MG PO (14:41)
[2021-06-04 15:08] VITALS: BP 152/96
--- NOTE | 2021-06-04 15:20 | NUR ---
DISCHARGED PATIENT. EXPLAINED DISCHARGE INSTRUCTIONS INCLUDING NEW MEDICATIONS AND UPCOMING APPOINMENTS. PT STATED HE UNDERSTOOD. REMOVED IV, TIP WAS INTACT. PT STATED HE DID NOT HAVE ANY FURTHER QUESTIONS.
--- NOTE | 2021-06-04 15:45 | EXE ---
[facility] [place] [address] STRESS ECHOCARDIOGRAM Name: MARIA ESTHER LARKIN Room #: 200-I ADM IN M.R.#: [id number] Admission: 06/04/21 Attend Phys: Kip Fleming MD Discharge: Date of : 66 Report #: [id number] THIS REPORT FOR: cc: NO FAMILY PHYSICIAN or PCP NO FAMILY PHYSICIAN or PCP Truman Bishop MD [facility] ~ APPROVED REPORT Study performed: 06/04/2021 12:52:26 Exam: Stress Echocardiogram Indication: Chest pain Patient Location: In-Patient Stress Nurse: Ann Case RN Room #: 200 Status: routine Ht: 6 ft 0 in HR: 76 bpm BP: 146/98 mmHg Rhythm: NSR Medical History Medical History: CAD s/p stent Cardiac Risk Factors: HTN, Smoking, FHX of CAD Previous Cardiac Procedures: PCI Exercise History: Physically active Procedure The patient underwent an Exercise Stress Test using the Osmani Protocol. Blood pressure, heart rate, and EKG were monitored. An Echocardiogram was performed by development technician in four stages in quad fashion. At peak stress, four selected images were obtained and placed side by side with resting images for comparison. Stress Test Details Stress Test: Exercise stress testing was performed using a Osmani protocol. HR Resting HR: 76 bpm Max Heart Rate (APMHR): 168 bpm Max HR Achieved: 157 bpm Target HR (85% APMHR): 142 bpm % of APMHR: 93 Recovery HR: 90 bpm HR response to stress: Normal HR response to stress [facility] [address] [place] [address] STRESS ECHOCARDIOGRAM Name: MARIA ESTHER LARKIN Room #: 200-I [facility] IN [facility].#: [id number] Admission: 06/04/21 Attend Phys: Kip Fleming MD Discharge: Date of : 66 Report #: [id number] Resting BP: 146/98 mmHg Max BP: 210/76 mmHg Recovery BP: 140/74 mmHg BP response to stress: Normal blood pressure response to stress. ECG Clinical Reason for Termination: Maximal effort Exercise duration: 8 min sec Highest Stage Achieved: Stage 3: 3.4 mph at 14% grade. Exercise capacity: 10.4 METs Overall Exercise Capacity for Age: Good Pre-Stress Echo The resting Echocardiogram showed abnormal left ventricular contractility with an estimated Ejection Fraction of about 30%. The resting Echocardiogram demonstrated wall motion abnormality in the inferior, septal liu. Post-Stress Echo The stress Echocardiogram showed abnormal left ventricular contractility with an estimated Ejection Fraction of about 35%. The stress Echocardiogram demonstrated wall motion abnormality in the inferior, septal liu. Compared to rest, there were no stress-induced wall motion abnormalities. Conclusion Clinical Response: Non-ischemic Exercise Capacity: Below Average Stress ECG Response: Equivocal Stress Echo Images: Non-ischemic Other Information Study Quality: Good <ELECTRONICALLY SIGNED> By: Truman Bishop MD, FAC 06/04/21 1545 1545 1545 Truman Bishop MD, [facility] /INF
== END 2021-06-04 16:11 | disposition home or self-care (01) | DRG 303 ==
LOC: ER 23:15 → 2N 06-04 01:12 → EROBS 06-04 01:12 → 2N 06-04 05:37
PROVIDERS: Emergency Medicine; Nurse Practitioner Family; ADMIT Hospitalist; ATTEND Hospitalist
DX: I25.110 Atherosclerotic heart disease of native coronary artery with unstable angina pectoris (principal); N17.9 Acute kidney failure, unspecified; E78.00 Pure hypercholesterolemia, unspecified; I10 Essential (primary) hypertension; F17.210 Nicotine dependence, cigarettes, uncomplicated; Z20.822 Contact with and (suspected) exposure to COVID-19; I25.5 Ischemic cardiomyopathy; Z95.5 Presence of coronary angioplasty implant and graft; Z88.6 Allergy status to analgesic agent; I25.2 Old myocardial infarction; Z83.3 Family history of diabetes mellitus; Z82.49 Family history of ischemic heart disease and other diseases of the circulatory system; Z82.3 Family history of stroke; Z83.42 Family history of familial hypercholesterolemia; Z80.8 Family history of malignant neoplasm of other organs or systems; Z87.81 Personal history of (healed) traumatic fracture; Z71.6 Tobacco abuse counseling; Z79.82 Long term (current) use of aspirin; Z79.899 Other long term (current) drug therapy
CPT/HCPCS: 10081

== ENCOUNTER → 2021-08-08 | Outpatient (CLI) | payer OTHER ==
[~2021-08-08] MED LIST changes: +BENICAR20 MG PO; +LIPITOR40 MG PO
== END ==
LOC: SJCVCIMAG 10:36
PROVIDERS: ATTEND Internal Medicine Cardiovascular Disease
DX: I51.7 Cardiomegaly (principal); I25.10 Atherosclerotic heart disease of native coronary artery without angina pectoris; I42.9 Cardiomyopathy, unspecified

== ENCOUNTER 2021-08-28 07:30 | Emergency (ER) | payer OTHER ==
[~2021-08-28] VITALS: Ht 185.4 cm; Wt 81.7 kg
[2021-08-28 08:03] LABS: ABSOLUTE NEUTROPHILS 4.2 thou/uL (1.4-8.2); BASOPHILS 0.6 % (0.0-2.0); EOSINOPHILS 3.1 % (0.0-3.0); HEMATOCRIT 40.4 % (42.0-52.0); HEMOGLOBIN 13.6 gm/dL (14.0-18.0); LYMPHOCYTES 27.8 % (24.0-44.0); MCH 27.4 pg (26.0-34.0); MCHC 33.7 g/dL (28.0-37.0); MCV 81.2 fL (80.0-100.0); MONOCYTES 10.1 % (1.0-8.0); PLATELET COUNT 239 thou/uL (150-400); POLYS 58.4 % (36.0-66.0); RBC 4.98 mil/uL (4.50-6.00); RDW 12.5 % (10.5-14.5); WBC 7.2 thou/uL (4.0-11.0)
[2021-08-28 08:07] LABS: CALCIUM 8.6 mg/dL (8.5-10.1); CREATININE 1.5 mg/dL (0.7-1.3); POTASSIUM 3.6 mmol/L (3.5-5.1)
[2021-08-28 10:31] VITALS: BP 143/101
--- NOTE | 2021-08-28 12:43 | EKG ---
[address] [address] ELECTROCARDIOGRAM REPORT Name: MARIA ESTHER LARKIN [id number] Admission: 08/28/21 Attend Phys: Discharge: 08/28/21 Date of : 66 Report #: [id number] [facility] ED Test Date: 2021-08-28 Test Time: 07:34:58 Pat Name: MARIA ESTHER LARKIN Department: Room: Gender: M Commercial Representative: AMY : 1970 Requested By: Apolinar Dukes Order Number: [id number] MD: Van Bunch Measurements Intervals [place] Rate: 69 P: 35 NC: 153 QRS: 76 QRSD: 127 T: 129 QT: 470 QTc: 504 Interpretive Statements Sinus rhythm Nonspecific intraventricular conduction delay Inferior infarct, old Probable anterior infarct, age indeterminate Compared to ECG 06/04/2021 00:23:16 Sinus arrhythmia no longer present Ventricular premature complex(es) no longer present Myocardial infarct finding still present Electronically Signed On 08-28-2021 12:43:22 DONOR SERVICES TEAM LEADER by Van Bunch [email or web address] <ELECTRONICALLY SIGNED> By: Van Bunch MD 08/28/21 1243 0734 0734 Van Bunch MD /EPI
== END 2021-08-28 10:38 | disposition home or self-care (01) ==
LOC: ER 07:30
PROVIDERS: Student in an Organized Health Care Education/Training Program
DX: R05.1 Acute cough (principal); R06.02 Shortness of breath; R07.89 Other chest pain; F17.210 Nicotine dependence, cigarettes, uncomplicated; I10 Essential (primary) hypertension; E78.00 Pure hypercholesterolemia, unspecified; I25.2 Old myocardial infarction; Z88.6 Allergy status to analgesic agent; Z79.2 Long term (current) use of antibiotics; Z79.899 Other long term (current) drug therapy